=== PATIENT | male | born 1950 | race Caucasian/White ===

== ENCOUNTER 2017-07-15 14:58 | Emergency (ER) | payer MEDICARE, OTHER ==
[2017-07-15] MEDS: CIPROFLOXACIN 500 MG TAB PO (20:22)
[2017-07-15 20:32] LABS: URINE BLOOD (Dip) POC 2+ (NEGATIVE); URINE GLUCOSE (Dip) POC Negative (NEGATIVE); URINE KETONES (Dip) POC Negative (NEGATIVE); URINE LEUKOCYTE EST (Dip) POC 3+ (NEGATIVE); URINE NITRITE (Dip) POC Positive (NEGATIVE); URINE TOTAL PROTEIN POC 3+ (NEGATIVE)
== END 2017-07-15 21:23 | disposition home or self-care (01) ==
LOC: E/R 14:58
DX: I10 Essential (primary) hypertension (principal); N30.90 Cystitis, unspecified without hematuria; E11.9 Type 2 diabetes mellitus without complications
CPT/HCPCS: 81003; 99283

== ENCOUNTER 2017-12-03 16:40 | Inpatient (IN) | payer MEDICARE, OTHER ==
[2017-12-03] MEDS: SODIUM CHLORIDE 0.9% 1L BAG IV* (19:19)
[2017-12-03] MEDS: VANCOMYCIN 1 GM (PMX) 250 ML IVPB (19:19)
[2017-12-03 19:20] LABS: ADD MAN DIFF? NO
[2017-12-03 19:22] LABS: WHITE BLOOD COUNT 8.8 10^3/ul (4.8-10.8)
[2017-12-03 19:22] LABS: BASOPHIL # 0.1 10^3/ul (0.0-0.1); EOSINOPHILS # 0.2 10^3/ul (0.0-0.5); HEMATOCRIT 42.3 % (42.0-52.0); HEMOGLOBIN 14.1 g/dl (14.0-18.0); LYMPHOCYTES % 34.4 % (15.0-51.0); MEAN CORPUSCULAR HEMOGLOBIN 30.3 pg (29.0-33.0); MEAN CORPUSCULAR HGB CONC 33.3 g/dl (32.0-37.0); MEAN PLATELET VOLUME 10.2 fl (7.4-10.4); MONOCYTE # 0.8 10^3/ul (0.3-0.9); MONOCYTES % 8.8 % (0.0-11.0); NEUTROPHIL # 4.7 10^3/ul (1.6-7.5); PLATELET COUNT 261 10^3/UL (140-415); RED BLOOD COUNT 4.65 10^6/ul (4.70-6.10); RED CELL DISTRIBUTION WIDTH 12.8 % (11.5-14.5)
[2017-12-03 19:34] LABS: ADD UMIC YES; UR ASCORBIC ACID 40 mg/dL (NEGATIVE); UR BACTERIA FEW /HPF (NONE SEEN); UR BILIRUBIN (Dip) NEGATIVE (NEGATIVE); UR BLOOD (Dip) NEGATIVE (NEGATIVE); UR CLARITY CLOUDY (CLEAR); UR COLOR YELLOW (YELLOW); UR GLUCOSE (Dip) NEGATIVE (NEGATIVE); UR KETONES (Dip) NEGATIVE (NEGATIVE); UR LEUKOCYTE ESTERASE (Dip) 3+ Leu/ul (NEGATIVE); UR MUCUS FEW /HPF (NONE SEEN); UR NITRITE (Dip) POSITIVE (NEGATIVE); UR RBC 12 /HPF (0-5); UR SPECIFIC GRAVITY (Dip) 1.012 (1.003-1.030); UR TOTAL PROTEIN (Dip) 2+ mg/dl (NEGATIVE); UR UROBILINOGEN (Dip) NEGATIVE (NEGATIVE); UR WBC 118 /HPF (0-5)
[2017-12-03 19:42] LABS: ALANINE AMINOTRANSFERASE 23 IU/L (13-69); ALBUMIN 4.8 g/dl (3.3-4.9); ALKALINE PHOSPHATASE 117 IU/L (42-121); ANION GAP 17 (8-16); ASPARTATE AMINO TRANSFERASE 16 IU/L (15-46); BILIRUBIN,INDIRECT 0.4 mg/dl (0-1.1); BILIRUBIN,TOTAL 0.4 mg/dl (0.2-1.3); BLOOD UREA NITROGEN 27 mg/dl (7-20); CALCIUM 9.6 mg/dl (8.4-10.2); CARBON DIOXIDE 20 mmol/L (21-31); CHLORIDE 113 mmol/L (97-110); CREATININE 2.88 mg/dl (0.61-1.24); GLUCOSE 113 mg/dl (70-220); POTASSIUM 4.2 mmol/L (3.5-5.1); SODIUM 146 mmol/L (135-144); TOTAL PROTEIN 8.8 g/dl (6.1-8.1)
[2017-12-03 19:53] LABS: TROPONIN-I < 0.010 ng/ml (0.000-0.120)
[2017-12-03] MEDS: CEFEPIME 1GM/50 ML (PMX) 50 ML IVPB (21:20)
[2017-12-03] MEDS ORDERED: MECLIZINE 12.5 MG TAB PO (23:00)
[2017-12-03] MEDS: SOD CHLORIDE 0.45% 1,000 ML IV (23:27)
[2017-12-03] MEDS: MIRTAZAPINE 15 MG TAB PO (23:28)
[2017-12-03] MEDS: TAMSULOSIN (SR) 0.4 MG CAP PO (23:28)
[2017-12-03] MEDS: METOPROLOL 100 MG TAB PO (23:28)
[2017-12-03] MEDS: NIFEdipine (XL) 30 MG TAB PO (23:28)
[2017-12-03] MEDS: ATORVASTATIN 10 MG TAB PO (23:28)
[2017-12-04] MEDS ORDERED: VANCOMYCIN IV PER PHARMACY XX
[2017-12-04] MEDS: DIVALPROEX (ER) 250 MG TAB PO ×3 (00:51→21:18)
[2017-12-04] MEDS: QUETIAPINE 100 MG TAB PO ×3 (00:51→21:18)
[2017-12-04] MEDS: VANCOMYCIN 500MG/NS (PMX) 100 ML IVPB (00:51)
[2017-12-04 07:01] LABS: ANION GAP 13 (8-16); BLOOD UREA NITROGEN 23 mg/dl (7-20); CALCIUM 8.2 mg/dl (8.4-10.2); CARBON DIOXIDE 19 mmol/L (21-31); CHLORIDE 117 mmol/L (97-110); CREATININE 2.39 mg/dl (0.61-1.24); GLUCOSE 101 mg/dl (70-220); POTASSIUM 3.9 mmol/L (3.5-5.1); SODIUM 145 mmol/L (135-144)
[2017-12-04] MEDS: ENOXAPARIN 30 MG/0.3 ML SYG SC (08:32)
[2017-12-04] MEDS: DONEPEZIL 10 MG TAB PO (08:32)
[2017-12-04] MEDS: AMLODIPINE 5 MG TAB PO (08:33)
[2017-12-04] MEDS: METOPROLOL 100 MG TAB PO ×2 (08:33→21:18)
[2017-12-04] MEDS ORDERED: CEFTRIAXONE 1 GM/NS 50 ML IVPB (09:00)
[2017-12-04] MEDS ORDERED: CEFTRIAXONE 1 GM INJ IVPB (09:00)
[2017-12-04] MEDS ORDERED: GLUCAGON 1 MG INJ IM (14:00)
[2017-12-04] MEDS ORDERED: GLUCOSE GEL 15 GRAM TUBE PO ×2 (14:00)
[2017-12-04] MEDS ORDERED: GLUCOSE GEL 15 GRAM TUBE BUCCAL (14:00)
[2017-12-04] MEDS ORDERED: DEXTROSE 50% 50 ML SYRINGE IV ×2 (14:00)
[2017-12-04] MEDS: SOD CHLORIDE 0.45% 1,000 ML IV ×2 (15:40→17:01)
[2017-12-04] MEDS: INSULIN ASPART [NOVOLOG] 3 ML PEN SC ×2 (17:12→21:00)
[2017-12-04] MEDS: TAMSULOSIN (SR) 0.4 MG CAP PO (21:17)
[2017-12-04] MEDS: MIRTAZAPINE 15 MG TAB PO (21:18)
[2017-12-04] MEDS: ATORVASTATIN 10 MG TAB PO (21:18)
[2017-12-04] MEDS: NIFEdipine (XL) 30 MG TAB PO (21:18)
[2017-12-04] MEDS: ACCU-CHEK XX (21:18)
[2017-12-05] MEDS ORDERED: ACCU-CHEK XX (02:00)
[2017-12-05] MEDS: INSULIN ASPART [NOVOLOG] 3 ML PEN SC ×7 (08:00→21:00)
[2017-12-05] MEDS: SOD CHLORIDE 0.45% 1,000 ML IV (09:01)
[2017-12-05] MEDS: METOPROLOL 100 MG TAB PO ×2 (09:12→22:10)
[2017-12-05] MEDS: DONEPEZIL 10 MG TAB PO (09:12)
[2017-12-05] MEDS: QUETIAPINE 100 MG TAB PO ×2 (09:12→22:10)
[2017-12-05] MEDS: AMLODIPINE 5 MG TAB PO (09:12)
[2017-12-05] MEDS: DIVALPROEX (ER) 250 MG TAB PO ×2 (09:12→22:10)
[2017-12-05] MEDS: ENOXAPARIN 30 MG/0.3 ML SYG SC (09:14)
[2017-12-05] MEDS: VANCOMYCIN 1 GM 250 ML IVPB (13:02)
[2017-12-05 15:09] LABS: ADD MAN DIFF? NO
[2017-12-05 15:11] LABS: WHITE BLOOD COUNT 7.7 10^3/ul (4.8-10.8)
[2017-12-05 15:11] LABS: BASOPHIL # 0.1 10^3/ul (0.0-0.1); EOSINOPHILS # 0.2 10^3/ul (0.0-0.5); HEMATOCRIT 37.6 % (42.0-52.0); HEMOGLOBIN 12.7 g/dl (14.0-18.0); LYMPHOCYTES # 2.4 10^3/ul (0.8-2.9); LYMPHOCYTES % 31.4 % (15.0-51.0); MEAN CORPUSCULAR HEMOGLOBIN 30.3 pg (29.0-33.0); MEAN CORPUSCULAR HGB CONC 33.8 g/dl (32.0-37.0); MEAN CORPUSCULAR VOLUME 89.7 fl (82.0-101.0); MEAN PLATELET VOLUME 10.3 fl (7.4-10.4); MONOCYTE # 0.6 10^3/ul (0.3-0.9); MONOCYTES % 7.8 % (0.0-11.0); NEUTROPHIL # 4.4 10^3/ul (1.6-7.5); NEUTROPHILS % 57.3 % (39.0-77.0); PLATELET COUNT 207 10^3/UL (140-415); RED BLOOD COUNT 4.19 10^6/ul (4.70-6.10); RED CELL DISTRIBUTION WIDTH 12.8 % (11.5-14.5)
[2017-12-05 15:30] LABS: ANION GAP 13 (8-16); BLOOD UREA NITROGEN 22 mg/dl (7-20); CALCIUM 8.6 mg/dl (8.4-10.2); CARBON DIOXIDE 19 mmol/L (21-31); CHLORIDE 116 mmol/L (97-110); CREATININE 2.32 mg/dl (0.61-1.24); GLUCOSE 108 mg/dl (70-220); SODIUM 144 mmol/L (135-144)
[2017-12-05] MEDS: NIFEdipine (XL) 30 MG TAB PO (22:09)
[2017-12-05] MEDS: ATORVASTATIN 10 MG TAB PO (22:10)
[2017-12-05] MEDS: TAMSULOSIN (SR) 0.4 MG CAP PO (22:11)
[2017-12-05] MEDS: MIRTAZAPINE 15 MG TAB PO (22:11)
[2017-12-06] MEDS: ACCU-CHEK XX (01:35)
[2017-12-06] MEDS: INSULIN ASPART [NOVOLOG] 3 ML PEN SC ×7 (08:00→21:00)
[2017-12-06] MEDS: SOD CHLORIDE 0.45% 1,000 ML IV (08:32)
[2017-12-06] MEDS: DONEPEZIL 10 MG TAB PO (09:04)
[2017-12-06] MEDS: DIVALPROEX (ER) 250 MG TAB PO ×2 (09:04→21:22)
[2017-12-06] MEDS: QUETIAPINE 100 MG TAB PO ×2 (09:04→21:22)
[2017-12-06] MEDS: AMLODIPINE 5 MG TAB PO (09:06)
[2017-12-06] MEDS: METOPROLOL 100 MG TAB PO ×2 (09:06→21:21)
[2017-12-06] MEDS: ENOXAPARIN 30 MG/0.3 ML SYG SC (09:10)
[2017-12-06] MEDS: ATORVASTATIN 10 MG TAB PO (21:21)
[2017-12-06] MEDS: NIFEdipine (XL) 30 MG TAB PO (21:21)
[2017-12-06] MEDS: MIRTAZAPINE 15 MG TAB PO (21:22)
[2017-12-06] MEDS: TAMSULOSIN (SR) 0.4 MG CAP PO (21:23)
[2017-12-07] MEDS: VANCOMYCIN 1 GM 250 ML IVPB (01:19)
[2017-12-07] MEDS: ACCU-CHEK XX ×2 (02:00→22:50)
[2017-12-07 05:24] LABS: ADD MAN DIFF? NO
[2017-12-07 05:26] LABS: WHITE BLOOD COUNT 7.2 10^3/ul (4.8-10.8)
[2017-12-07 05:26] LABS: BASOPHIL # 0.1 10^3/ul (0.0-0.1); BASOPHILS % 0.8 % (0.0-2.0); EOSINOPHILS # 0.2 10^3/ul (0.0-0.5); EOSINOPHILS % 2.1 % (0.0-7.0); HEMOGLOBIN 13.7 g/dl (14.0-18.0); LYMPHOCYTES # 2.7 10^3/ul (0.8-2.9); LYMPHOCYTES % 37.8 % (15.0-51.0); MEAN CORPUSCULAR HGB CONC 34.3 g/dl (32.0-37.0); MEAN CORPUSCULAR VOLUME 90.5 fl (82.0-101.0); MEAN PLATELET VOLUME 10.1 fl (7.4-10.4); MONOCYTE # 0.6 10^3/ul (0.3-0.9); MONOCYTES % 7.7 % (0.0-11.0); NEUTROPHIL # 3.7 10^3/ul (1.6-7.5); NEUTROPHILS % 51.2 % (39.0-77.0); PLATELET COUNT 205 10^3/UL (140-415); RED BLOOD COUNT 4.42 10^6/ul (4.70-6.10); RED CELL DISTRIBUTION WIDTH 12.6 % (11.5-14.5)
[2017-12-07 05:55] LABS: ANION GAP 14 (8-16); BLOOD UREA NITROGEN 22 mg/dl (7-20); CALCIUM 8.8 mg/dl (8.4-10.2); CARBON DIOXIDE 20 mmol/L (21-31); CHLORIDE 116 mmol/L (97-110); CREATININE 2.33 mg/dl (0.61-1.24); GLUCOSE 94 mg/dl (70-220); POTASSIUM 4.1 mmol/L (3.5-5.1); SODIUM 146 mmol/L (135-144)
[2017-12-07] MEDS: SOD CHLORIDE 0.45% 1,000 ML IV (06:53)
[2017-12-07] MEDS: INSULIN ASPART [NOVOLOG] 3 ML PEN SC ×7 (08:00→21:00)
[2017-12-07] MEDS: ENOXAPARIN 30 MG/0.3 ML SYG SC (08:20)
[2017-12-07] MEDS: DIVALPROEX (ER) 250 MG TAB PO ×2 (08:46→22:04)
[2017-12-07] MEDS: METOPROLOL 100 MG TAB PO ×2 (08:46→22:05)
[2017-12-07] MEDS: AMLODIPINE 5 MG TAB PO (08:46)
[2017-12-07] MEDS: DONEPEZIL 10 MG TAB PO (08:46)
[2017-12-07] MEDS: QUETIAPINE 100 MG TAB PO ×2 (08:46→22:04)
[2017-12-07] MEDS: TAMSULOSIN (SR) 0.4 MG CAP PO (22:03)
[2017-12-07] MEDS: MIRTAZAPINE 15 MG TAB PO (22:04)
[2017-12-07] MEDS: NIFEdipine (XL) 30 MG TAB PO (22:04)
[2017-12-07] MEDS: ATORVASTATIN 10 MG TAB PO (22:05)
[2017-12-08] MEDS: SOD CHLORIDE 0.45% 1,000 ML IV ×2 (02:23→23:37)
[2017-12-08] MEDS: INSULIN ASPART [NOVOLOG] 3 ML PEN SC ×7 (08:00→20:10)
[2017-12-08] MEDS: DIVALPROEX (ER) 250 MG TAB PO ×2 (08:25→21:23)
[2017-12-08] MEDS: ENOXAPARIN 30 MG/0.3 ML SYG SC (08:25)
[2017-12-08] MEDS: DONEPEZIL 10 MG TAB PO (08:26)
[2017-12-08] MEDS: QUETIAPINE 100 MG TAB PO ×2 (08:26→20:12)
[2017-12-08] MEDS: METOPROLOL 100 MG TAB PO ×2 (08:26→20:18)
[2017-12-08] MEDS: AMLODIPINE 5 MG TAB PO (08:26)
[2017-12-08 12:14] LABS: VANCOMYCIN,TROUGH 13.5 ug/ml (10.0-20.0)
[2017-12-08] MEDS: VANCOMYCIN 1 GM 250 ML IVPB (12:58)
[2017-12-08] MEDS ORDERED: DOCUSATE SODIUM 100 MG CAP PO (19:28)
[2017-12-08] MEDS: ATORVASTATIN 10 MG TAB PO (20:11)
[2017-12-08] MEDS: MIRTAZAPINE 15 MG TAB PO (20:11)
[2017-12-08] MEDS: DOCUSATE SODIUM 100 MG CAP PO (20:11)
[2017-12-08] MEDS: TAMSULOSIN (SR) 0.4 MG CAP PO (20:12)
[2017-12-08] MEDS: NIFEdipine (XL) 30 MG TAB PO (20:18)
[2017-12-09] MEDS: ACCU-CHEK XX (02:00)
[2017-12-09 05:56] LABS: ADD MAN DIFF? NO
[2017-12-09 06:02] LABS: BASOPHIL # 0.1 10^3/ul (0.0-0.1); BASOPHILS % 0.8 % (0.0-2.0); EOSINOPHILS # 0.2 10^3/ul (0.0-0.5); EOSINOPHILS % 3.4 % (0.0-7.0); HEMATOCRIT 41.4 % (42.0-52.0); HEMOGLOBIN 13.7 g/dl (14.0-18.0); LYMPHOCYTES # 2.7 10^3/ul (0.8-2.9); LYMPHOCYTES % 43.5 % (15.0-51.0); MEAN CORPUSCULAR HEMOGLOBIN 30.6 pg (29.0-33.0); MEAN CORPUSCULAR HGB CONC 33.1 g/dl (32.0-37.0); MEAN CORPUSCULAR VOLUME 92.6 fl (82.0-101.0); MEAN PLATELET VOLUME 10.4 fl (7.4-10.4); MONOCYTE # 0.6 10^3/ul (0.3-0.9); MONOCYTES % 9.1 % (0.0-11.0); NEUTROPHIL # 2.6 10^3/ul (1.6-7.5); NEUTROPHILS % 42.6 % (39.0-77.0); PLATELET COUNT 206 10^3/UL (140-415); RED BLOOD COUNT 4.47 10^6/ul (4.70-6.10); RED CELL DISTRIBUTION WIDTH 12.5 % (11.5-14.5)
[2017-12-09 06:02] LABS: WHITE BLOOD COUNT 6.2 10^3/ul (4.8-10.8)
[2017-12-09 06:31] LABS: ANION GAP 16 (8-16); BLOOD UREA NITROGEN 33 mg/dl (7-20); CALCIUM 9.1 mg/dl (8.4-10.2); CARBON DIOXIDE 24 mmol/L (21-31); CHLORIDE 109 mmol/L (97-110); CREATININE 2.44 mg/dl (0.61-1.24); GLUCOSE 91 mg/dl (70-220); POTASSIUM 4.5 mmol/L (3.5-5.1); SODIUM 144 mmol/L (135-144)
[2017-12-09] MEDS: INSULIN ASPART [NOVOLOG] 3 ML PEN SC ×7 (08:00→20:46)
[2017-12-09] MEDS: ENOXAPARIN 30 MG/0.3 ML SYG SC (08:21)
[2017-12-09] MEDS: QUETIAPINE 100 MG TAB PO ×2 (08:25→20:38)
[2017-12-09] MEDS: METOPROLOL 100 MG TAB PO ×2 (08:25→20:38)
[2017-12-09] MEDS: AMLODIPINE 5 MG TAB PO (08:25)
[2017-12-09] MEDS: DOCUSATE SODIUM 100 MG CAP PO ×2 (08:25→20:37)
[2017-12-09] MEDS: DONEPEZIL 10 MG TAB PO (08:25)
[2017-12-09] MEDS: DIVALPROEX (ER) 250 MG TAB PO ×2 (08:25→20:37)
[2017-12-09] MEDS: SOD CHLORIDE 0.45% 1,000 ML IV ×2 (12:02→22:39)
[2017-12-09] MEDS: DOXYCYCLINE 100 MG TAB PO ×2 (13:37→20:38)
[2017-12-09] MEDS: TAMSULOSIN (SR) 0.4 MG CAP PO (20:37)
[2017-12-09] MEDS: NIFEdipine (XL) 30 MG TAB PO (20:38)
[2017-12-09] MEDS: MIRTAZAPINE 15 MG TAB PO (20:38)
[2017-12-09] MEDS: ATORVASTATIN 10 MG TAB PO (20:40)
[2017-12-10] MEDS: ACCU-CHEK XX (02:00)
[2017-12-10 06:29] LABS: ADD MAN DIFF? NO
[2017-12-10 06:34] LABS: WHITE BLOOD COUNT 5.8 10^3/ul (4.8-10.8)
[2017-12-10 06:34] LABS: BASOPHILS % 0.7 % (0.0-2.0); EOSINOPHILS # 0.2 10^3/ul (0.0-0.5); EOSINOPHILS % 2.8 % (0.0-7.0); HEMATOCRIT 36.9 % (42.0-52.0); HEMOGLOBIN 12.4 g/dl (14.0-18.0); LYMPHOCYTES # 3.1 10^3/ul (0.8-2.9); LYMPHOCYTES % 53.6 % (15.0-51.0); MEAN CORPUSCULAR HEMOGLOBIN 31.1 pg (29.0-33.0); MEAN CORPUSCULAR HGB CONC 33.6 g/dl (32.0-37.0); MEAN CORPUSCULAR VOLUME 92.5 fl (82.0-101.0); MEAN PLATELET VOLUME 10.8 fl (7.4-10.4); MONOCYTE # 0.5 10^3/ul (0.3-0.9); MONOCYTES % 8.2 % (0.0-11.0); NEUTROPHILS % 34.4 % (39.0-77.0); PLATELET COUNT 194 10^3/UL (140-415); RED BLOOD COUNT 3.99 10^6/ul (4.70-6.10); RED CELL DISTRIBUTION WIDTH 12.5 % (11.5-14.5)
[2017-12-10 07:05] LABS: ANION GAP 15 (8-16); BLOOD UREA NITROGEN 37 mg/dl (7-20); CALCIUM 8.5 mg/dl (8.4-10.2); CARBON DIOXIDE 22 mmol/L (21-31); CHLORIDE 112 mmol/L (97-110); CREATININE 2.59 mg/dl (0.61-1.24); GLUCOSE 88 mg/dl (70-220); POTASSIUM 4.4 mmol/L (3.5-5.1); SODIUM 145 mmol/L (135-144)
[2017-12-10] MEDS: INSULIN ASPART [NOVOLOG] 3 ML PEN SC ×7 (08:00→20:30)
[2017-12-10] MEDS: DOCUSATE SODIUM 100 MG CAP PO ×2 (10:03→20:20)
[2017-12-10] MEDS: QUETIAPINE 100 MG TAB PO ×2 (10:03→20:21)
[2017-12-10] MEDS: DOXYCYCLINE 100 MG TAB PO ×2 (10:03→20:21)
[2017-12-10] MEDS: DONEPEZIL 10 MG TAB PO (10:03)
[2017-12-10] MEDS: DIVALPROEX (ER) 250 MG TAB PO ×2 (10:03→20:20)
[2017-12-10] MEDS: AMLODIPINE 5 MG TAB PO (10:05)
[2017-12-10] MEDS: METOPROLOL 100 MG TAB PO ×2 (10:05→20:20)
[2017-12-10] MEDS: ENOXAPARIN 30 MG/0.3 ML SYG SC (10:12)
[2017-12-10] MEDS: ATORVASTATIN 10 MG TAB PO (20:20)
[2017-12-10] MEDS: TAMSULOSIN (SR) 0.4 MG CAP PO (20:20)
[2017-12-10] MEDS: MIRTAZAPINE 15 MG TAB PO (20:21)
[2017-12-10] MEDS: NIFEdipine (XL) 30 MG TAB PO (20:21)
[2017-12-11] MEDS: SOD CHLORIDE 0.45% 1,000 ML IV ×3 (01:29→20:06)
[2017-12-11] MEDS: ACCU-CHEK XX ×2 (02:00→20:26)
[2017-12-11 05:51] LABS: ADD MAN DIFF? NO
[2017-12-11 05:56] LABS: BASOPHILS % 0.7 % (0.0-2.0); EOSINOPHILS # 0.1 10^3/ul (0.0-0.5); HEMATOCRIT 38.6 % (42.0-52.0); HEMOGLOBIN 12.9 g/dl (14.0-18.0); LYMPHOCYTES # 3.2 10^3/ul (0.8-2.9); MEAN CORPUSCULAR HEMOGLOBIN 30.9 pg (29.0-33.0); MEAN CORPUSCULAR HGB CONC 33.4 g/dl (32.0-37.0); MEAN CORPUSCULAR VOLUME 92.6 fl (82.0-101.0); MEAN PLATELET VOLUME 10.5 fl (7.4-10.4); MONOCYTE # 0.4 10^3/ul (0.3-0.9); MONOCYTES % 6.6 % (0.0-11.0); NEUTROPHIL # 2.2 10^3/ul (1.6-7.5); PLATELET COUNT 193 10^3/UL (140-415); RED BLOOD COUNT 4.17 10^6/ul (4.70-6.10); RED CELL DISTRIBUTION WIDTH 12.3 % (11.5-14.5)
[2017-12-11 06:21] LABS: ANION GAP 13 (8-16); BLOOD UREA NITROGEN 40 mg/dl (7-20); CARBON DIOXIDE 23 mmol/L (21-31); CHLORIDE 113 mmol/L (97-110); GLUCOSE 88 mg/dl (70-220); POTASSIUM 4.6 mmol/L (3.5-5.1); SODIUM 144 mmol/L (135-144)
[2017-12-11] MEDS: INSULIN ASPART [NOVOLOG] 3 ML PEN SC ×7 (08:00→20:26)
[2017-12-11] MEDS: DONEPEZIL 10 MG TAB PO (08:05)
[2017-12-11] MEDS: QUETIAPINE 100 MG TAB PO ×2 (08:05→20:10)
[2017-12-11] MEDS: DOCUSATE SODIUM 100 MG CAP PO ×2 (08:05→20:10)
[2017-12-11] MEDS: DOXYCYCLINE 100 MG TAB PO ×2 (08:05→20:10)
[2017-12-11] MEDS: DIVALPROEX (ER) 250 MG TAB PO ×2 (08:06→20:26)
[2017-12-11] MEDS: METOPROLOL 100 MG TAB PO ×2 (08:10→20:10)
[2017-12-11] MEDS: AMLODIPINE 5 MG TAB PO (08:10)
[2017-12-11] MEDS: HEPARIN 5,000 UNIT/0.5 ML VIAL SC ×2 (08:41→20:19)
[2017-12-11] MEDS: ATORVASTATIN 10 MG TAB PO (20:09)
[2017-12-11] MEDS: MIRTAZAPINE 15 MG TAB PO (20:09)
[2017-12-11] MEDS: NIFEdipine (XL) 30 MG TAB PO (20:09)
[2017-12-11] MEDS: TAMSULOSIN (SR) 0.4 MG CAP PO (20:10)
[2017-12-12] MEDS: INSULIN ASPART [NOVOLOG] 3 ML PEN SC ×7 (08:00→21:00)
[2017-12-12 08:04] LABS: ADD MAN DIFF? NO
[2017-12-12 08:08] LABS: WHITE BLOOD COUNT 6.9 10^3/ul (4.8-10.8)
[2017-12-12 08:08] LABS: BASOPHIL # 0.1 10^3/ul (0.0-0.1); BASOPHILS % 0.9 % (0.0-2.0); EOSINOPHILS # 0.1 10^3/ul (0.0-0.5); EOSINOPHILS % 0.9 % (0.0-7.0); HEMATOCRIT 43.7 % (42.0-52.0); HEMOGLOBIN 14.7 g/dl (14.0-18.0); LYMPHOCYTES # 2.7 10^3/ul (0.8-2.9); LYMPHOCYTES % 38.7 % (15.0-51.0); MEAN CORPUSCULAR HEMOGLOBIN 30.4 pg (29.0-33.0); MEAN CORPUSCULAR HGB CONC 33.6 g/dl (32.0-37.0); MEAN CORPUSCULAR VOLUME 90.3 fl (82.0-101.0); MONOCYTE # 0.5 10^3/ul (0.3-0.9); MONOCYTES % 7.8 % (0.0-11.0); NEUTROPHIL # 3.5 10^3/ul (1.6-7.5); NEUTROPHILS % 50.7 % (39.0-77.0); PLATELET COUNT 210 10^3/UL (140-415); RED BLOOD COUNT 4.84 10^6/ul (4.70-6.10); RED CELL DISTRIBUTION WIDTH 12.2 % (11.5-14.5)
[2017-12-12] MEDS: HEPARIN 5,000 UNIT/0.5 ML VIAL SC ×2 (08:19→21:27)
[2017-12-12] MEDS: DONEPEZIL 10 MG TAB PO (08:20)
[2017-12-12] MEDS: DIVALPROEX (ER) 250 MG TAB PO ×2 (08:20→21:24)
[2017-12-12] MEDS: DOCUSATE SODIUM 100 MG CAP PO ×2 (08:20→21:24)
[2017-12-12] MEDS: QUETIAPINE 100 MG TAB PO ×2 (08:20→21:24)
[2017-12-12] MEDS: METOPROLOL 100 MG TAB PO ×2 (08:20→21:24)
[2017-12-12] MEDS: AMLODIPINE 5 MG TAB PO (08:21)
[2017-12-12 08:29] LABS: ANION GAP 17 (8-16); BLOOD UREA NITROGEN 32 mg/dl (7-20); CALCIUM 9.5 mg/dl (8.4-10.2); CARBON DIOXIDE 21 mmol/L (21-31); CHLORIDE 111 mmol/L (97-110); CREATININE 2.21 mg/dl (0.61-1.24); GLUCOSE 109 mg/dl (70-220); POTASSIUM 4.1 mmol/L (3.5-5.1); SODIUM 145 mmol/L (135-144)
[2017-12-12] MEDS: SOD CHLORIDE 0.45% 1,000 ML IV (18:14)
[2017-12-12] MEDS: ATORVASTATIN 10 MG TAB PO (21:00)
[2017-12-12] MEDS: TAMSULOSIN (SR) 0.4 MG CAP PO (21:24)
[2017-12-12] MEDS: NIFEdipine (XL) 30 MG TAB PO (21:25)
[2017-12-12] MEDS: MIRTAZAPINE 15 MG TAB PO (21:25)
[2017-12-13] MEDS: ACCU-CHEK XX (02:00)
[2017-12-13 06:30] LABS: ADD MAN DIFF? NO
[2017-12-13 06:39] LABS: BASOPHIL # 0.1 10^3/ul (0.0-0.1); EOSINOPHILS # 0.1 10^3/ul (0.0-0.5); EOSINOPHILS % 1.5 % (0.0-7.0); HEMATOCRIT 41.1 % (42.0-52.0); HEMOGLOBIN 13.6 g/dl (14.0-18.0); LYMPHOCYTES # 3.2 10^3/ul (0.8-2.9); LYMPHOCYTES % 53.4 % (15.0-51.0); MEAN CORPUSCULAR HEMOGLOBIN 30.4 pg (29.0-33.0); MEAN CORPUSCULAR HGB CONC 33.1 g/dl (32.0-37.0); MEAN CORPUSCULAR VOLUME 91.7 fl (82.0-101.0); MONOCYTE # 0.6 10^3/ul (0.3-0.9); MONOCYTES % 9.8 % (0.0-11.0); NEUTROPHILS % 33.5 % (39.0-77.0); PLATELET COUNT 186 10^3/UL (140-415); RED BLOOD COUNT 4.48 10^6/ul (4.70-6.10); RED CELL DISTRIBUTION WIDTH 12.4 % (11.5-14.5)
[2017-12-13 07:19] LABS: ANION GAP 16 (8-16); BLOOD UREA NITROGEN 39 mg/dl (7-20); CALCIUM 8.9 mg/dl (8.4-10.2); CARBON DIOXIDE 21 mmol/L (21-31); CHLORIDE 111 mmol/L (97-110); CREATININE 2.59 mg/dl (0.61-1.24); GLUCOSE 91 mg/dl (70-220); POTASSIUM 4.5 mmol/L (3.5-5.1); SODIUM 143 mmol/L (135-144)
[2017-12-13] MEDS: INSULIN ASPART [NOVOLOG] 3 ML PEN SC ×7 (08:00→21:00)
[2017-12-13] MEDS: HEPARIN 5,000 UNIT/0.5 ML VIAL SC ×2 (08:21→22:08)
[2017-12-13] MEDS: DOCUSATE SODIUM 100 MG CAP PO ×2 (08:22→22:02)
[2017-12-13] MEDS: AMLODIPINE 5 MG TAB PO (08:22)
[2017-12-13] MEDS: DONEPEZIL 10 MG TAB PO (08:22)
[2017-12-13] MEDS: QUETIAPINE 100 MG TAB PO ×2 (08:22→22:02)
[2017-12-13] MEDS: DIVALPROEX (ER) 250 MG TAB PO ×2 (08:22→22:02)
[2017-12-13] MEDS: METOPROLOL 100 MG TAB PO ×2 (08:22→22:03)
[2017-12-13] MEDS: SOD CHLORIDE 0.45% 1,000 ML IV ×2 (16:20→18:12)
[2017-12-13] MEDS: MIRTAZAPINE 15 MG TAB PO (22:03)
[2017-12-13] MEDS: NIFEdipine (XL) 30 MG TAB PO (22:03)
[2017-12-13] MEDS: TAMSULOSIN (SR) 0.4 MG CAP PO (22:03)
[2017-12-13] MEDS: ATORVASTATIN 10 MG TAB PO (22:07)
[2017-12-14] MEDS: ACCU-CHEK XX (02:00)
[2017-12-14 06:09] LABS: ADD MAN DIFF? NO
[2017-12-14 06:18] LABS: WHITE BLOOD COUNT 6.5 10^3/ul (4.8-10.8)
[2017-12-14 06:18] LABS: BASOPHIL # 0.1 10^3/ul (0.0-0.1); BASOPHILS % 0.9 % (0.0-2.0); EOSINOPHILS # 0.1 10^3/ul (0.0-0.5); EOSINOPHILS % 1.7 % (0.0-7.0); HEMATOCRIT 39.7 % (42.0-52.0); HEMOGLOBIN 13.3 g/dl (14.0-18.0); LYMPHOCYTES # 3.6 10^3/ul (0.8-2.9); LYMPHOCYTES % 55.1 % (15.0-51.0); MEAN CORPUSCULAR HEMOGLOBIN 30.9 pg (29.0-33.0); MEAN CORPUSCULAR HGB CONC 33.5 g/dl (32.0-37.0); MEAN CORPUSCULAR VOLUME 92.1 fl (82.0-101.0); MONOCYTE # 0.5 10^3/ul (0.3-0.9); MONOCYTES % 7.7 % (0.0-11.0); NEUTROPHIL # 2.2 10^3/ul (1.6-7.5); NEUTROPHILS % 33.7 % (39.0-77.0); PLATELET COUNT 182 10^3/UL (140-415); RED BLOOD COUNT 4.31 10^6/ul (4.70-6.10); RED CELL DISTRIBUTION WIDTH 12.4 % (11.5-14.5)
[2017-12-14 07:02] LABS: ANION GAP 16 (8-16); BLOOD UREA NITROGEN 43 mg/dl (7-20); CALCIUM 8.9 mg/dl (8.4-10.2); CARBON DIOXIDE 20 mmol/L (21-31); CHLORIDE 113 mmol/L (97-110); CREATININE 2.82 mg/dl (0.61-1.24); GLUCOSE 85 mg/dl (70-220); POTASSIUM 4.4 mmol/L (3.5-5.1); SODIUM 145 mmol/L (135-144)
[2017-12-14] MEDS: INSULIN ASPART [NOVOLOG] 3 ML PEN SC ×7 (08:00→21:00)
[2017-12-14] MEDS: HEPARIN 5,000 UNIT/0.5 ML VIAL SC ×2 (08:43→21:28)
[2017-12-14] MEDS: DOCUSATE SODIUM 100 MG CAP PO ×2 (08:45→21:28)
[2017-12-14] MEDS: DONEPEZIL 10 MG TAB PO (08:45)
[2017-12-14] MEDS: DIVALPROEX (ER) 250 MG TAB PO ×2 (08:45→21:28)
[2017-12-14] MEDS: QUETIAPINE 100 MG TAB PO ×2 (08:45→21:28)
[2017-12-14] MEDS: AMLODIPINE 5 MG TAB PO (08:46)
[2017-12-14] MEDS: METOPROLOL 100 MG TAB PO ×2 (08:46→21:00)
[2017-12-14] MEDS: TAMSULOSIN (SR) 0.4 MG CAP PO (21:28)
[2017-12-14] MEDS: MIRTAZAPINE 15 MG TAB PO (21:28)
[2017-12-14] MEDS: ATORVASTATIN 10 MG TAB PO (21:29)
[2017-12-14] MEDS: NIFEdipine (XL) 30 MG TAB PO (21:29)
[2017-12-15] MEDS: ACCU-CHEK XX (02:00)
[2017-12-15 06:30] LABS: ADD MAN DIFF? NO
[2017-12-15 06:31] LABS: BASOPHIL # 0.1 10^3/ul (0.0-0.1); BASOPHILS % 1.1 % (0.0-2.0); EOSINOPHILS # 0.1 10^3/ul (0.0-0.5); EOSINOPHILS % 1.5 % (0.0-7.0); HEMATOCRIT 39.9 % (42.0-52.0); HEMOGLOBIN 13.2 g/dl (14.0-18.0); LYMPHOCYTES # 3.6 10^3/ul (0.8-2.9); LYMPHOCYTES % 57.8 % (15.0-51.0); MEAN CORPUSCULAR HGB CONC 33.1 g/dl (32.0-37.0); MEAN CORPUSCULAR VOLUME 93.7 fl (82.0-101.0); MEAN PLATELET VOLUME 11.6 fl (7.4-10.4); MONOCYTE # 0.5 10^3/ul (0.3-0.9); MONOCYTES % 7.9 % (0.0-11.0); NEUTROPHIL # 1.9 10^3/ul (1.6-7.5); NEUTROPHILS % 31.1 % (39.0-77.0); PLATELET COUNT 180 10^3/UL (140-415); RED BLOOD COUNT 4.26 10^6/ul (4.70-6.10); RED CELL DISTRIBUTION WIDTH 12.2 % (11.5-14.5)
[2017-12-15 06:31] LABS: WHITE BLOOD COUNT 6.2 10^3/ul (4.8-10.8)
[2017-12-15 07:03] LABS: ANION GAP 15 (8-16); BLOOD UREA NITROGEN 42 mg/dl (7-20); CALCIUM 8.6 mg/dl (8.4-10.2); CARBON DIOXIDE 20 mmol/L (21-31); CHLORIDE 113 mmol/L (97-110); CREATININE 2.88 mg/dl (0.61-1.24); GLUCOSE 86 mg/dl (70-220); POTASSIUM 4.4 mmol/L (3.5-5.1); SODIUM 144 mmol/L (135-144)
[2017-12-15] MEDS: INSULIN ASPART [NOVOLOG] 3 ML PEN SC ×7 (08:00→21:00)
[2017-12-15] MEDS: QUETIAPINE 100 MG TAB PO ×2 (08:18→21:12)
[2017-12-15] MEDS: DIVALPROEX (ER) 250 MG TAB PO ×2 (08:18→21:11)
[2017-12-15] MEDS: DOCUSATE SODIUM 100 MG CAP PO ×2 (08:18→21:11)
[2017-12-15] MEDS: DONEPEZIL 10 MG TAB PO (08:18)
[2017-12-15] MEDS: AMLODIPINE 5 MG TAB PO (08:19)
[2017-12-15] MEDS: METOPROLOL 50 MG TAB PO ×2 (08:22→21:12)
[2017-12-15 14:23] LABS: INR 0.92; PROTIME 12.4 Sec (11.9-14.9)
[2017-12-15] MEDS: HEPARIN 5,000 UNIT/0.5 ML VIAL SC ×2 (16:10→21:14)
[2017-12-15] MEDS: ATORVASTATIN 10 MG TAB PO (21:12)
[2017-12-15] MEDS: TAMSULOSIN (SR) 0.4 MG CAP PO (21:12)
[2017-12-15] MEDS: MIRTAZAPINE 15 MG TAB PO (21:12)
[2017-12-16] MEDS: ACCU-CHEK XX (02:00)
[2017-12-16 05:55] LABS: ADD MAN DIFF? NO
[2017-12-16 06:09] LABS: WHITE BLOOD COUNT 6.6 10^3/ul (4.8-10.8)
[2017-12-16 06:09] LABS: BASOPHIL # 0.1 10^3/ul (0.0-0.1); BASOPHILS % 0.9 % (0.0-2.0); EOSINOPHILS # 0.1 10^3/ul (0.0-0.5); EOSINOPHILS % 1.7 % (0.0-7.0); HEMATOCRIT 41.6 % (42.0-52.0); HEMOGLOBIN 13.8 g/dl (14.0-18.0); LYMPHOCYTES # 3.5 10^3/ul (0.8-2.9); LYMPHOCYTES % 53.3 % (15.0-51.0); MEAN CORPUSCULAR HEMOGLOBIN 30.7 pg (29.0-33.0); MEAN CORPUSCULAR HGB CONC 33.2 g/dl (32.0-37.0); MEAN CORPUSCULAR VOLUME 92.7 fl (82.0-101.0); MEAN PLATELET VOLUME 11.6 fl (7.4-10.4); MONOCYTE # 0.6 10^3/ul (0.3-0.9); MONOCYTES % 8.8 % (0.0-11.0); NEUTROPHIL # 2.3 10^3/ul (1.6-7.5); NEUTROPHILS % 34.2 % (39.0-77.0); PLATELET COUNT 185 10^3/UL (140-415); RED BLOOD COUNT 4.49 10^6/ul (4.70-6.10); RED CELL DISTRIBUTION WIDTH 12.2 % (11.5-14.5)
[2017-12-16 06:29] LABS: ANION GAP 16 (8-16); BLOOD UREA NITROGEN 40 mg/dl (7-20); CALCIUM 8.9 mg/dl (8.4-10.2); CARBON DIOXIDE 21 mmol/L (21-31); CHLORIDE 113 mmol/L (97-110); CREATININE 2.72 mg/dl (0.61-1.24); GLUCOSE 95 mg/dl (70-220); POTASSIUM 4.7 mmol/L (3.5-5.1); SODIUM 145 mmol/L (135-144)
[2017-12-16] MEDS: INSULIN ASPART [NOVOLOG] 3 ML PEN SC ×7 (08:00→21:00)
[2017-12-16] MEDS: AMLODIPINE 5 MG TAB PO (08:09)
[2017-12-16] MEDS: HEPARIN 5,000 UNIT/0.5 ML VIAL SC ×2 (08:09→22:20)
[2017-12-16] MEDS: DOCUSATE SODIUM 100 MG CAP PO ×2 (08:09→22:13)
[2017-12-16] MEDS: DONEPEZIL 10 MG TAB PO (08:09)
[2017-12-16] MEDS: METOPROLOL 50 MG TAB PO ×2 (08:09→22:19)
[2017-12-16] MEDS: DIVALPROEX (ER) 250 MG TAB PO ×2 (08:10→22:13)
[2017-12-16] MEDS: QUETIAPINE 100 MG TAB PO ×2 (08:10→22:14)
[2017-12-16] MEDS: NIFEdipine (XL) 30 MG TAB PO ×2 (13:44→22:19)
[2017-12-16] MEDS: MIRTAZAPINE 15 MG TAB PO (22:14)
[2017-12-16] MEDS: TAMSULOSIN (SR) 0.4 MG CAP PO (22:14)
[2017-12-16] MEDS: ATORVASTATIN 10 MG TAB PO (22:14)
[2017-12-17] MEDS: ACCU-CHEK XX ×2 (02:00→22:38)
[2017-12-17 06:33] LABS: ADD MAN DIFF? NO
[2017-12-17 07:21] LABS: ANION GAP 16 (8-16); BLOOD UREA NITROGEN 37 mg/dl (7-20); CALCIUM 9.4 mg/dl (8.4-10.2); CARBON DIOXIDE 19 mmol/L (21-31); CHLORIDE 114 mmol/L (97-110); CREATININE 2.85 mg/dl (0.61-1.24); GLUCOSE 100 mg/dl (70-220); POTASSIUM 4.4 mmol/L (3.5-5.1); SODIUM 145 mmol/L (135-144)
[2017-12-17] MEDS: INSULIN ASPART [NOVOLOG] 3 ML PEN SC ×7 (08:00→20:35)
[2017-12-17] MEDS: NIFEdipine (XL) 30 MG TAB PO ×2 (08:06→20:36)
[2017-12-17] MEDS: DIVALPROEX (ER) 250 MG TAB PO ×2 (08:06→21:35)
[2017-12-17] MEDS: DOCUSATE SODIUM 100 MG CAP PO ×2 (08:06→20:36)
[2017-12-17] MEDS: HEPARIN 5,000 UNIT/0.5 ML VIAL SC ×2 (08:06→20:40)
[2017-12-17] MEDS: DONEPEZIL 10 MG TAB PO (08:07)
[2017-12-17] MEDS: QUETIAPINE 100 MG TAB PO ×2 (08:07→20:36)
[2017-12-17] MEDS: METOPROLOL 50 MG TAB PO ×2 (08:07→20:36)
[2017-12-17 09:43] LABS: BASOPHIL # 0.1 10^3/ul (0.0-0.1); BASOPHILS % 0.9 % (0.0-2.0); EOSINOPHILS # 0.1 10^3/ul (0.0-0.5); EOSINOPHILS % 0.9 % (0.0-7.0); HEMATOCRIT 43.6 % (42.0-52.0); HEMOGLOBIN 14.5 g/dl (14.0-18.0); LYMPHOCYTES # 2.6 10^3/ul (0.8-2.9); LYMPHOCYTES % 38.9 % (15.0-51.0); MEAN CORPUSCULAR HGB CONC 33.3 g/dl (32.0-37.0); MEAN CORPUSCULAR VOLUME 93.4 fl (82.0-101.0); MEAN PLATELET VOLUME 11.6 fl (7.4-10.4); MONOCYTE # 0.7 10^3/ul (0.3-0.9); NEUTROPHIL # 3.2 10^3/ul (1.6-7.5); NEUTROPHILS % 48.6 % (39.0-77.0); PLATELET COUNT 191 10^3/UL (140-415); RED BLOOD COUNT 4.67 10^6/ul (4.70-6.10); RED CELL DISTRIBUTION WIDTH 12.1 % (11.5-14.5)
[2017-12-17 09:43] LABS: WHITE BLOOD COUNT 6.7 10^3/ul (4.8-10.8)
[2017-12-17] MEDS: MIRTAZAPINE 15 MG TAB PO (20:35)
[2017-12-17] MEDS: ATORVASTATIN 10 MG TAB PO (20:36)
[2017-12-17] MEDS: TAMSULOSIN (SR) 0.4 MG CAP PO (20:36)
[2017-12-18] MEDS: ACETAMINOPHEN 325 MG TAB PO (00:17)
[2017-12-18] MEDS: INSULIN ASPART [NOVOLOG] 3 ML PEN SC ×4 (08:00→12:57)
[2017-12-18] MEDS: METOPROLOL 50 MG TAB PO (09:00)
[2017-12-18] MEDS: HEPARIN 5,000 UNIT/0.5 ML VIAL SC (09:17)
[2017-12-18] MEDS: DONEPEZIL 10 MG TAB PO (09:17)
[2017-12-18] MEDS: DOCUSATE SODIUM 100 MG CAP PO (09:17)
[2017-12-18] MEDS: QUETIAPINE 100 MG TAB PO (09:20)
[2017-12-18] MEDS: NIFEdipine (XL) 30 MG TAB PO (09:22)
[2017-12-18] MEDS: DIVALPROEX (ER) 250 MG TAB PO (09:36)
== END 2017-12-18 16:37 | disposition home or self-care (01) | DRG 689 ==
LOC: PP2 12-16 13:36 → FTE 16:40 → PP2 20:45
DX: N39.0 Urinary tract infection, site not specified (principal); N17.0 Acute kidney failure with tubular necrosis; F33.3 Major depressive disorder, recurrent, severe with psychotic symptoms; B95.62 Methicillin resistant Staphylococcus aureus infection as the cause of diseases classified elsewhere; Z16.24 Resistance to multiple antibiotics; N18.3 Chronic kidney disease, stage 3 (moderate); R33.9 Retention of urine, unspecified; E11.8 Type 2 diabetes mellitus with unspecified complications; M10.9 Gout, unspecified; I12.9 Hypertensive chronic kidney disease with stage 1 through stage 4 chronic kidney disease, or unspecified chronic kidney disease; Z86.73 Personal history of transient ischemic attack (TIA), and cerebral infarction without residual deficits
CPT/HCPCS: 36415; 71045; 73520; 76775; 80048; 80053; 80202; 81001; 82962; 84484; 85025; 85610; 87086; 96374; 97110; 97116; 97162; 97530; 99285-25; G0378

== ENCOUNTER 2018-09-27 19:25 | Emergency (ER) | payer MEDICARE ==
[2018-09-27 23:24] LABS: ADD UMIC YES; UR ASCORBIC ACID 40 mg/dL (NEGATIVE); UR BILIRUBIN (Dip) NEGATIVE (NEGATIVE); UR BLOOD (Dip) 3+ mg/dL (NEGATIVE); UR CLARITY CLOUDY (CLEAR); UR COLOR RED (YELLOW); UR GLUCOSE (Dip) NEGATIVE (NEGATIVE); UR KETONES (Dip) NEGATIVE (NEGATIVE); UR LEUKOCYTE ESTERASE (Dip) 2+ Leu/ul (NEGATIVE); UR NITRITE (Dip) NEGATIVE (NEGATIVE); UR RBC > 182 /HPF (0-5); UR SPECIFIC GRAVITY (Dip) 1.012 (1.003-1.030); UR TOTAL PROTEIN (Dip) 2+ mg/dl (NEGATIVE); UR UROBILINOGEN (Dip) NEGATIVE (NEGATIVE); UR WBC > 182 /HPF (0-5)
[2018-09-27] MEDS: CEFTRIAXONE 1 GM/50 ML (PMX) 50 ML IVPB (23:53)
[2018-09-28 00:08] LABS: ANION GAP 13 (5-13); BLOOD UREA NITROGEN 25 mg/dl (7-20); CALCIUM 9.8 mg/dl (8.4-10.2); CARBON DIOXIDE 21 mmol/L (21-31); CHLORIDE 111 mmol/L (97-110); CREATININE 2.87 mg/dl (0.61-1.24); Estimated GFR 22 mL/min (>60); GLUCOSE 105 mg/dl (70-220); POTASSIUM 4.4 mmol/L (3.5-5.1); SODIUM 145 mmol/L (135-144)
== END 2018-09-28 01:10 | disposition home or self-care (01) ==
LOC: E/R 19:25
DX: N30.01 Acute cystitis with hematuria (principal); I12.9 Hypertensive chronic kidney disease with stage 1 through stage 4 chronic kidney disease, or unspecified chronic kidney disease; N18.9 Chronic kidney disease, unspecified; E11.22 Type 2 diabetes mellitus with diabetic chronic kidney disease; Z87.891 Personal history of nicotine dependence
CPT/HCPCS: 80048; 81001; 96374; 99284-25